=== PATIENT | male | born 1985 | race Caucasian/White ===

== ENCOUNTER 2016-09-11 11:18 | Emergency (ER) | payer MEDICARE ==
[2016-09-11] MEDS ORDERED: HYDROMORPHONE HCL INJ/PF 2 MG/ML AMPULE IM ONE (12:59)
[2016-09-11] MEDS ORDERED: KETOROLAC TROMETHAMINE 60 MG/2 ML SDV IM ONE (13:00)
[2016-09-11] MEDS ORDERED: DIAZEPAM 5 MG TABLET PO ONE (13:00)
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
[2016-09-11 16:11] VITALS: BP 110/54
== END 2016-09-11 16:11 | disposition home or self-care (01) ==
LOC: ER 11:18
DX: G89.29 Other chronic pain (principal); R25.2 Cramp and spasm; I10 Essential (primary) hypertension; Z79.891 Long term (current) use of opiate analgesic; Z98.890 Other specified postprocedural states
CPT/HCPCS: 99283; 96372; A9270; J1885; J1170

== ENCOUNTER 2016-11-03 10:15 | Emergency (ER) | payer MEDICARE ==
[2016-11-03] MEDS ORDERED: KETOROLAC TROMETHAMINE INJ/PF 30 MG/1 ML SDV IV ONE (10:33)
[2016-11-03] MEDS ORDERED: HYDROMORPHONE HCL INJ/PF 2 MG/ML AMPULE IV ONE ×2 (10:34→11:33)
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
[2016-11-03 11:55] VITALS: BP 130/91
== END 2016-11-03 11:53 | disposition home or self-care (01) ==
LOC: ER 10:15
DX: M54.9 Dorsalgia, unspecified (principal); G89.29 Other chronic pain; M54.6 Pain in thoracic spine; Z79.899 Other long term (current) drug therapy
CPT/HCPCS: 96376; 99284; 96374; 96375; 72070; J1885; J1170

== ENCOUNTER 2017-01-25 09:20 | Emergency (ER) | payer MEDICARE ==
[2017-01-25] MEDS ORDERED: HYDROMORPHONE HCL INJ/PF 2 MG/ML AMPULE IV ONE (09:40)
[2017-01-25 10:23] VITALS: BP 127/80
--- NOTE | 2017-01-25 10:27 | RADIOLOGY REPORT (SQ) ---
EXAM DESCRIPTION: HIP RIGHT AP/LATERAL COMPLETED DATE/TIME: 01/25/2017 10:19 am REASON FOR STUDY: bed 17 right hip s/p fall +rotation COMPARISON: None. NUMBER OF VIEWS: Two views. TECHNIQUE: AP pelvis and additional frog-leg view of the right hip. LIMITATIONS: None. FINDINGS: MINERALIZATION: Normal. RIGHT HIP: No fracture or dislocation. No worrisome bone lesions. LEFT HIP: No fracture or dislocation. No worrisome bone lesions. PUBIS AND ISCHIUM: No fracture. PELVIS: No fracture. SACRUM: No fracture or dislocation. No worrisome bone lesions. LOWER LUMBAR SPINE: No fracture or dislocation. No worrisome bone lesions. No significant disc disea se. SOFT TISSUES: No findings. OTHER: No other significant finding. IMPRESSION: NEGATIVE STUDY OF THE RIGHT HIP. NO RADIOGRAPHIC EVIDENCE OF ACUTE INJURY. TECHNICAL DOCUMENTATION: JOB ID: [id number] [employer]- All Rights Reserved
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
== END 2017-01-25 12:29 | disposition home or self-care (01) ==
LOC: ER 09:20
DX: M25.551 Pain in right hip (principal); S80.812A Abrasion, left lower leg, initial encounter; W10.9XXA Fall (on) (from) unspecified stairs and steps, initial encounter; Y92.029 Unspecified place in mobile home as the place of occurrence of the external cause; I10 Essential (primary) hypertension; F17.200 Nicotine dependence, unspecified, uncomplicated; G83.11 Monoplegia of lower limb affecting right dominant side; S22.009S Unspecified fracture of unspecified thoracic vertebra, sequela; V49.9XXS Car occupant (driver) (passenger) injured in unspecified traffic accident, sequela; Z79.891 Long term (current) use of opiate analgesic; Z79.899 Other long term (current) drug therapy; R25.2 Cramp and spasm
CPT/HCPCS: 99283; 96374; 73502; J1170

== ENCOUNTER 2017-01-27 20:51 | Emergency (ER) | payer MEDICARE ==
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
[2017-01-27] MEDS ORDERED: HYDROMORPHONE HCL INJ/PF 2 MG/ML AMPULE IV ONE (22:07)
[2017-01-27] MEDS ORDERED: NORMAL SALINE 1000 ML 2,000 ML IV ONE (22:07)
[2017-01-27 22:58] LABS: ABSOLUTE BASOPHILS # (AUTO) 0.1 10^3/uL (0.0-0.2); ABSOLUTE EOSINOPHILS # (AUTO) 0.3 10^3/uL (0.0-0.6); ABSOLUTE LYMPHOCYTES (AUTO) 2.3 10^3/uL (0.5-4.7); ABSOLUTE MONOCYTES (AUTO) 0.5 10^3/uL (0.1-1.4); ABSOLUTE NEUT (AUTO) 4.3 10^3/uL (1.7-8.2); BASOPHILS % (AUTO) 0.7 % (0-2); EOSINOPHILS % (AUTO) 3.9 % (0-6); HEMATOCRIT 45.7 % (37.9-51.0); HEMOGLOBIN 14.9 g/dL (13.5-17.0); LYMPHOCYTES % (AUTO) 30.9 % (13-45); MEAN CORPUSCULAR HEMOGLOBIN 29.3 pg (27.0-33.4); MEAN CORPUSCULAR HGB CONC 32.7 g/dL (32.0-36.0); MEAN CORPUSCULAR VOLUME 90 fl (80-97); RED CELL DISTRIBUTION WIDTH 12.1 % (11.5-14.0); SEGMENTED NEUTROPHILS % (AUTO) 57.5 % (42-78); WHITE BLOOD COUNT 7.5 10^3/uL (4.0-10.5)
[2017-01-27 23:11] LABS: ALANINE AMINOTRANSFERASE 35 U/L (21-72); ALBUMIN 4.2 g/dL (3.5-5.0); ALKALINE PHOSPHATASE 95 U/L (38-126); ANION GAP 9 (5-19); ASPARTATE AMINO TRANSFERASE 25 U/L (17-59); BILIRUBIN,DIRECT 0.5 mg/dL (0.0-0.4); BILIRUBIN,TOTAL 0.6 mg/dL (0.2-1.3); BLOOD UREA NITROGEN 11 mg/dL (7-20); CALCIUM 9.5 mg/dL (8.4-10.2); CARBON DIOXIDE 27 mmol/L (22-30); CHLORIDE 104 mmol/L (98-107); CREATININE RESULT 0.71 mg/dL (0.52-1.25); GLUCOSE 87 mg/dL (75-110); POTASSIUM 4.7 mmol/L (3.6-5.0); SODIUM 140.4 mmol/L (137-145); TOTAL PROTEIN 7.3 g/dL (6.3-8.2)
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
[2017-01-28] MEDS ORDERED: DEXAMETHASONE SOD PHOS INJ 10 MG/1 ML VIAL IV ONE (01:32)
[2017-01-28] MEDS ORDERED: HYDROMORPHONE HCL INJ/PF 2 MG/ML AMPULE IV ONE (02:18)
[2017-01-28 02:26] LABS: APPEARANCE,URINE CLEAR; BILIRUBIN,URINE NEGATIVE (NEGATIVE); GLUCOSE, URINE NEGATIVE (NEGATIVE); KETONES,URINE NEGATIVE (NEGATIVE); LEUKOCYTE ESTERASE,URINE NEGATIVE (NEGATIVE); NITRITE,URINE NEGATIVE (NEGATIVE); PROTEIN,URINE NEGATIVE (NEGATIVE); URINE SPECIFIC GRAVITY 1.006; UROBILINOGEN,URINE NEGATIVE mg/dL (<2.0)
[2017-01-28 02:39] LABS: URINE BARBITURATES SCREEN NEGATIVE; URINE METHADONE SCREEN UNCONFIRMED POSITIVE; URINE OPIATES LOW NEGATIVE; URINE PHENCYCLIDINE SCREEN NEGATIVE
[2017-01-28 05:41] VITALS: BP 130/87
== END 2017-01-28 05:30 | disposition home or self-care (01) ==
LOC: ER 20:51
DX: S70.01XA Contusion of right hip, initial encounter (principal); W01.0XXA Fall on same level from slipping, tripping and stumbling without subsequent striking against object, initial encounter; Y92.099 Unspecified place in other non-institutional residence as the place of occurrence of the external cause; S24.102S Unspecified injury at T2-T6 level of thoracic spinal cord, sequela; G82.20 Paraplegia, unspecified; X58.XXXS Exposure to other specified factors, sequela; I10 Essential (primary) hypertension; J41.0 Simple chronic bronchitis; F17.210 Nicotine dependence, cigarettes, uncomplicated
CPT/HCPCS: 96376; 99284; 96374; 96375; 36415; 85025; 80053; 81001; 80307; 72131; 72192; J1170 ×2; J7030; J1100

== ENCOUNTER 2017-01-30 14:49 | Emergency (ER) | payer OTHER, MEDICARE ==
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
[2017-01-30 16:51] VITALS: BP 117/79
== END 2017-01-30 16:50 | disposition home or self-care (01) ==
LOC: ER 14:49
DX: M54.6 Pain in thoracic spine (principal); V89.2XXA Person injured in unspecified motor-vehicle accident, traffic, initial encounter; R20.0 Anesthesia of skin; G82.20 Paraplegia, unspecified; F17.200 Nicotine dependence, unspecified, uncomplicated; I10 Essential (primary) hypertension
CPT/HCPCS: 72070; 99283

== ENCOUNTER 2017-05-04 14:11 | Emergency (ER) | payer MEDICARE, OTHER ==
[2017-05-04] MEDS ORDERED: LIDOCAINE 1% INJ-PF (10 MG/ML) 30 ML SDV INJ ONE (15:42)
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
[2017-05-04] MEDS ORDERED: ONDANSETRON 4 MG TAB.RAPDIS PO ONE (16:43)
[2017-05-04 17:03] VITALS: BP 133/80
== END 2017-05-04 17:00 | disposition home or self-care (01) ==
LOC: ER 14:11
DX: S61.214A Laceration without foreign body of right ring finger without damage to nail, initial encounter (principal); W23.0XXA Caught, crushed, jammed, or pinched between moving objects, initial encounter; Y92.512 Supermarket, store or market as the place of occurrence of the external cause; I10 Essential (primary) hypertension
CPT/HCPCS: 99283; 73140; 12001; A9270; S0119

== ENCOUNTER 2018-04-21 15:35 | Emergency (ER) | payer MEDICARE, MEDICAID ==
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
--- NOTE | 2018-04-21 16:46 | RADIOLOGY REPORT (SQ) ---
EXAM DESCRIPTION: ANKLE RIGHT COMPLETE COMPLETED DATE/TIME: 04/21/2018 4:36 pm REASON FOR STUDY: fall COMPARISON: None. NUMBER OF VIEWS: Three views. TECHNIQUE: AP, lateral, and oblique radiographic images acquired of the right ankle. LIMITATIONS: None. FINDINGS: MINERALIZATION: Normal. BONES: No acute fracture or dislocation. No worrisome bone lesions. JOINTS: No effusions. SOFT TISSUES: No soft tissue swelling. No foreign body. OTHER: No other significant finding. IMPRESSION: NEGATIVE STUDY OF THE RIGHT ANKLE. NO RADIOGRAPHIC EVIDENCE OF ACUTE INJURY. TECHNICAL DOCUMENTATION: JOB ID: [id number] [employer]- All Rights Reserved Reading location - IP/workstation name: [facility]
--- NOTE | 2018-04-21 16:47 | RADIOLOGY REPORT (SQ) ---
EXAM DESCRIPTION: FOOT RIGHT COMPLETE COMPLETED DATE/TIME: 04/21/2018 4:36 pm REASON FOR STUDY: fall COMPARISON: None. NUMBER OF VIEWS: Three views. TECHNIQUE: AP, lateral and oblique radiographic images acquired of the right foot. LIMITATIONS: None. FINDINGS: MINERALIZATION: Normal. BONES: No acute fracture or dislocation. No worrisome bone lesions. JOINTS: No effusions. SOFT TISSUES: No soft tissue swelling. No foreign body. OTHER: No other significant finding. IMPRESSION: NEGATIVE STUDY OF THE RIGHT FOOT. NO RADIOGRAPHIC EVIDENCE OF ACUTE INJURY. TECHNICAL DOCUMENTATION: JOB ID: [id number] [employer]- All Rights Reserved Reading location - IP/workstation name: [email or web address]
[2018-04-21 16:59] VITALS: BP 138/68
== END 2018-04-21 17:31 | disposition home or self-care (01) ==
LOC: ER 15:35
PROC: 2W3RX1Z Immobilization of Left Lower Leg using Splint (ICD-10-PCS; principal; 2018-04-21)
DX: S90.02XA Contusion of left ankle, initial encounter (principal); S90.32XA Contusion of left foot, initial encounter; W20.8XXA Other cause of strike by thrown, projected or falling object, initial encounter; F17.200 Nicotine dependence, unspecified, uncomplicated; I10 Essential (primary) hypertension
CPT/HCPCS: 99283